=== PATIENT | male | born 1935 | race Caucasian/White ===

== ENCOUNTER 2019-12-27 14:02 | Emergency (ER) | payer MEDICARE, OTHER ==
[~2019-12-27] VITALS: Ht 160 cm; Wt 70.3 kg
--- NOTE | 2019-12-27 14:12 | NUR ---
bibra for "fever/cough/chills x3-4day No appetite"; pt to bed 6, placed on monitor, vss, -sob, nad noted,pending md ledesma
--- NOTE | 2019-12-27 15:46 | NUR ---
PER [facility] HOPPER; SEND ALL CLINICALS AND FACESHEET, H&P FAX [phone] [facility] [phone]
[2019-12-27 15:53] LABS: CALCIUM, SERUM 9.2 mg/dL (8.5-10.1); CARBON DIOXIDE 28 mmol/L (21-32); CHLORIDE 104 mmol/L (98-107); CREATININE 1.4 mg/dL (0.6-1.3); GLUCOSE 96 mg/dL (74-106); POTASSIUM 3.7 mmol/L (3.5-5.1); SODIUM SERUM 140 mmol/L (136-145); UREA NITROGEN, BLOOD 19 mg/dL (7-18)
[2019-12-27 15:59] LABS: ALANINE AMINOTRANSFERASE 17 U/L (12-78); ALBUMIN 3.8 g/dL (3.4-5.0); ALKALINE PHOSPHATASE 86 U/L (46-116); ASPARTATE AMINOTRANSFERASE 21 U/L (15-37); BILIRUBIN,DIRECT 0.1 mg/dL (0.0-0.2); BILIRUBIN,TOTAL 0.7 mg/dL (0.2-1.0); LIPASE 58 U/L (73-393)
[2019-12-27 16:11] LABS: BASOPHILS # (AUTO) 0.1 /CMM (0.0-0.2); BASOPHILS % (AUTO) 1.4 % (0.0-2.0); HEMATOCRIT 41 % (39-51); LYMPHOCYTES # (AUTO) 1.3 /CMM (0.8-4.8); LYMPHOCYTES % (AUTO) 36.8 % (20.0-44.0); MEAN CORPUSCULAR HGB CONC 34 g/dl (31.0-36.0); MEAN CORPUSCULAR VOLUME 93 fL (80-96); MONOCYTES # (AUTO) 0.4 /CMM (0.1-1.30); MONOCYTES % (AUTO) 10.2 % (2.0-12.0); NEUTROPHILS # (AUTO) 1.9 /CMM (1.8-8.9); NEUTROPHILS % (AUTO) 50.6 % (43.0-81.0); PLATELET COUNT (AUTO) 280 /CMM (150-450); RED BLOOD CELL COUNT(AUTO) 4.46 MIL/uL (4.5-6.0); WHITE BLOOD COUNT (AUTO) 3.7 K/uL (4.3-11.0)
--- NOTE | 2019-12-27 17:16 | NUR ---
THE PATIENT HAS BEEN OBSERVED FOR THREE HOURS IN THE EMERGENCY DEPARTMENT. NO COUGH, CONGESTION, OR FEVER NOTED. THE PATIENT IS AWAITING PLACEMENT IN NURSING FACILITY.
--- NOTE | 2019-12-27 17:29 | NUR ---
ASD Addendum: 12/27/19 at 1729 by RBATACLAN PT ACCEPTED TO [facility]. NUMBER FOR REPORT IS [phone]
--- NOTE | 2019-12-27 17:33 | NUR ---
PAWEL ETA TO [facility] ETA [id number] TRIP#[id number]
--- NOTE | 2019-12-27 18:18 | NUR ---
[place] don: lea
--- NOTE | 2019-12-27 18:18 | NUR ---
spoke to Sandrine regarding patient, explained patient's c/c. requesting patient to be observed, explained we cannot keep patient here for observation. called [facility] mclean, aware of situation
[2019-12-27 18:33] VITALS: BP 121/65
--- NOTE | 2019-12-27 18:33 | NUR ---
Patient discharged to home in stable condition. Written and verbal after care instructions given. Patient verbalizes understanding of instruction.
== END 2019-12-27 18:33 | disposition home or self-care (01) ==
LOC: ER 14:17
DX: F03.90 Unspecified dementia, unspecified severity, without behavioral disturbance, psychotic disturbance, mood disturbance, and anxiety (principal); I10 Essential (primary) hypertension; N40.0 Benign prostatic hyperplasia without lower urinary tract symptoms; Z59.0 Homelessness
CPT/HCPCS: 36415; 80048-TC; 80076-TC; 83690-TC; 84484-TC; 85025-TC